=== PATIENT | female | born 1960 | race Caucasian/White ===

== ENCOUNTER 2023-08-30 17:16 | Inpatient (IN) | payer MEDICARE, OTHER, SELFPAY ==
[2023-08-30 17:38] LABS: Actual Bicarbonate (HCO3a) 15.6 mEq/L (22-28); Analyzer IN Cardio ER; Base Excess (BEa) -14.4 mEq/L (-2.0 to +3.0); CO2 Tension 53.3 mmHg (35.0-45.0); Calcium, Ionized (arterial) 1.25 mmol/L (1.12-1.30); Carboxyhemoglobin (COHb) 1.4 gm% (0.0-3.0); Hematocrit-ABG 38 % (36.0-47.0); Potassium - ABG Lab 3.96 mmol/L (3.70-5.30); Puncture Site RRA; pH, Arterial 7.083 (7.35-7.45)
[2023-08-30 17:39] LABS: ALV-art Gradient -105.625 mmHg (0-20)
[2023-08-30] MEDS ORDERED: Amiodarone 450 MG/9 ML VIAL ONE (17:45)
[2023-08-30] MEDS ORDERED: Amiodarone 150 MG/3 ML VIAL ONE (17:45)
[2023-08-30 17:53] LABS: Hematocrit 38.7 % (36.0-47.0); Hemoglobin 12.7 g/dL (12.0-16.0); Mean Corpuscular HGB CONC 32.8 g/dL (32.0-36.0); Mean Corpuscular Hemoglobin 35.5 pg (27.0-31.0); Mean Corpuscular Volume 108.1 fL (78.0-98.0); Mean Platelet Volume 12.7 fL (7.4-10.4); Platelet Count 123 10x3/uL (130-400); RBC Distribution Width 15.6 % (11.5-14.5); Red Blood Cell (RBC) Count 3.58 mill/uL (4.20-5.40)
[2023-08-30 18:09] LABS: ALT (SGPT) 301 U/L (8-55); AST (SGOT) 432 U/L (5-34); Albumin 3.1 g/dL (3.4-4.8); Alkaline Phosphatase 148 U/L (40-110); Anion Gap 23 mmol/L (10-20); BUN (Urea Nitrogen) 18 mg/dL (9.8-20.1); Bilirubin, Total 0.9 mg/dL (0.2-1.2); CK (CPK) 366 U/L (29-168); Calc. Creatinine Clearance 0 mL/min (70-130); Calcium 8.8 mg/dL (7.8-10.44); Carbon Dioxide 10 mmol/L (23-31); Chloride 108 mmol/L (98-107); Estimated GFR 42; Globulin 2.8 g/dL (2.4-3.5); Glucose 229 mg/dL (80-115); Potassium 4.6 mmol/L (3.5-5.1); Protein, Total 5.9 g/dL (5.8-8.1); Sodium 136 mmol/L (136-145)
[2023-08-30 18:26] LABS: Anisocytosis SLIGHT = 6-15 cells HPF (0-5); Band 14 % (5-11); Burr Cells MODERATE= 6-15 cells HPF (0-1); Eosinophils 2 % (0-10); Large Platelets 7.9 % (0-5); Lymphocytes 36 % (21-51); Macrocytosis SLIGHT = 6-15 cells HPF (0-5); Metamyelocyte 2 % (0-0); Monocytes 2 % (0-10); Myelocyte 1 % (0-0); Neutrophil 44 % (42-75); Ovalocytes SLIGHT = 2-5 cells HPF (0-1); Platelet Adequacy Comment Platelets Decreased; Poikilocytosis MODERATE=16-30 cells HPF (0-5); Polychromasia SLIGHT = 2-3 cells HPF (0-2)
[2023-08-30 18:30] LABS: Troponin I 3.684 ng/mL (< 0.028)
[2023-08-30] MEDS ORDERED: EPINEPHrine 1 MG/ML VIAL ONE (19:54)
[2023-08-30] MEDS ORDERED: Ventilator Sedation Protocol 1 EACH FS SCH (21:10)
[2023-08-30] MEDS ORDERED: DISCONTINUE PREVIOUS NARCOTIC PAIN MEDICATIONS AND BENZODIAZEPINES FS SCH (21:15)
[2023-08-30] MEDS ORDERED: Propofol BOLUS 1,000 MG/100 ML VIAL IV PRN (21:15)
[2023-08-30] MEDS ORDERED: Fentanyl BOLUS 250 ML IVPB PRN (21:15)
[2023-08-30] MEDS ORDERED: Fentanyl CADD 100 ML IV SCH (21:15)
[2023-08-30] MEDS ORDERED: Propofol 1,000 MG/100 ML VIAL IV PRN (21:15)
[2023-08-30 21:16] LABS: Base Excess (BEa) -16.3 mEq/L (-2.0 to +3.0); CO2 Tension 42.8 mmHg (35.0-45.0); Calcium, Ionized (arterial) 1.17 mmol/L (1.12-1.30); Carboxyhemoglobin (COHb) 0.6 gm% (0.0-3.0); Hematocrit-ABG 35 % (36.0-47.0); Hemoglobin (Hb) 11.8 g/dL (12.0-16.0); O2 Tension (PaO2), arterial 222.1 mmHg (> 80.0); Potassium - ABG Lab 4.17 mmol/L (3.70-5.30)
[2023-08-30 21:19] LABS: Actual Bicarbonate (HCO3a) 12.8 mEq/L (22-28); pH, Arterial 7.094 (7.35-7.45)
[2023-08-30 21:20] LABS: Puncture Site RRA
[2023-08-30] MEDS: Sodium Bicarb 50 MEQ/50 ML Abboject 8.4% SYRINGE ONE ×2 (21:20)
[2023-08-30 22:07] LABS: Lactic Acid 10.9 mmol/L (0.5-2.2)
[2023-08-30] MEDS ORDERED: Electrolyte Replacement Protocol 1 EACH FS SCH (22:10)
[2023-08-30] MEDS ORDERED: Dextrose 5% in Water 1,000 ML IV PRN (22:11)
[2023-08-30] MEDS ORDERED: Glucagon 1 MG/ML KIT IM PRN (22:11)
[2023-08-30] MEDS ORDERED: Dextrose 50% Abboject 50 ML SYRINGE SLOW IVP PRN (22:11)
[2023-08-30] MEDS ORDERED: Acetaminophen 650 MG Suppository PR PRN (22:36)
[2023-08-30] MEDS ORDERED: Acetaminophen 325 MG (10.15 ML) UDCUP PO PRN (22:36)
[2023-08-30] MEDS: NOREPINEPHRINE 8 MG/250 ML-D5W 250 ML ONE (22:37)
[2023-08-30] MEDS: Sodium Bicarbonate 150 MEQ in Sterile Water 1,000 ML IV SCH (22:39)
[2023-08-30] MEDS: Lactated Ringer's 1,000 ML IV SCH (22:41)
[2023-08-30] MEDS: EPINEPHrine 4 MG in Dextrose 5% in Water 250 ML IV SCH (22:43)
[2023-08-30] MEDS: Amiodarone 450 MG in Dextrose 5% in Water 250 ML IVPB SCH (22:47)
[2023-08-30 22:51] LABS: INR-International Normal Ratio 2.5; Prothrombin Time 27.1 sec (12.0-14.7)
[2023-08-30 22:52] LABS: PTT 62.9 sec (22.9-36.1)
[2023-08-30 22:53] LABS: Magnesium 1.3 mg/dL (1.6-2.6)
[2023-08-30 22:56] LABS: Fibrinogen 103 mg/dL (253-463)
[2023-08-30 22:59] LABS: Troponin I 24.678 ng/mL (< 0.028)
[2023-08-30] MEDS: Sodium Bicarb 50 mEq/50 ML VIAL IVP SCH (22:59)
[2023-08-30 23:07] VITALS: BMI 24.3
[2023-08-30 23:07] LABS: D-Dimer Test Greater than 20.00 mcg/mL (0.27-0.43)
[2023-08-30] MEDS ORDERED: Magnesium Sulfate 4 GM in Sodium Chloride 0.9% 250 ML 250 ML IVPB SCH (23:30)
[2023-08-30] MEDS: Magnesium Sulfate In Water 4 GM in Premix 1 BAG IVPB SCH (23:36)
[2023-08-30 23:53] LABS: Platelet Count 71 10x3/uL (130-400)
[2023-08-30 23:58] LABS: Base Excess -13.6 mEq/L (-2.0 to +3.0); Calcium, Ionized (venous) 1.05 mmol/L (1.16-1.32); Chloride (VBG) 100 mmol/L (98-106); Hematocrit-VBG 34 % (36.0-47.0); Hemoglobin (Hb) 11.6 g/dL (11.7-16.1); Potassium (VBG) 3.41 mmol/L (3.70-5.30); Sodium 138 mmol/L (133-146)
[2023-08-31] MEDS: NOREPINEPHRINE 8 MG/250 ML-D5W 250 ML IVPB SCH (01:47)
[2023-08-31 02:31] LABS: Amphetamine Not Detected (NotDetected); Barbiturates Screen Not Detected (NotDetected); Benzodiazepine Screen Not Detected (NotDetected); Cocaine Metabolite Screen Not Detected (NotDetected); Methadone Not Detected (NotDetected); Methamphetamine Not Detected (NotDetected); Opiate Screen Not Detected (NotDetected); Oxycodone Screen Not Detected (NotDetected); Phencyclidine (PCP) Not Detected (NotDetected); THC/Cannabinoid Screen Not Detected (NotDetected); Tricyclic Screen Detected (NotDetected)
[2023-08-31 02:56] LABS: Troponin I 24.545 ng/mL (< 0.028)
[2023-08-31] MEDS ORDERED: Insulin Lispro 100 UNIT/ML 10 ML VIAL SC PRN ×2 (06:28)
[2023-08-31 06:43] LABS: Hematocrit 25.8 % (36.0-47.0); Mean Corpuscular HGB CONC 34.9 g/dL (32.0-36.0); Mean Corpuscular Hemoglobin 35.3 pg (27.0-31.0); Mean Corpuscular Volume 101.2 fL (78.0-98.0); Mean Platelet Volume 13.6 fL (7.4-10.4); Platelet Count 43 10x3/uL (130-400); RBC Distribution Width 15.5 % (11.5-14.5); Red Blood Cell (RBC) Count 2.55 mill/uL (4.20-5.40)
[2023-08-31 06:54] LABS: Magnesium 2.4 mg/dL (1.6-2.6)
[2023-08-31 06:55] LABS: Acetaminophen Less than 10 mcg/mL (10.0-30.0); Alcohol Less than 10.0 mg/dL (Less than 10); Salicylate Less than 8.0 mg/dL (15.0-30.0)
[2023-08-31 07:00] LABS: Lactic Acid 10.1 mmol/L (0.5-2.2)
[2023-08-31 07:03] LABS: Base Excess (BEa) -6.8 mEq/L (-2.0 to +3.0); CO2 Tension 33.8 mmHg (35.0-45.0); Calcium, Ionized (arterial) 0.97 mmol/L (1.12-1.30); Carboxyhemoglobin (COHb) 1.1 gm% (0.0-3.0); Hematocrit-ABG 34 % (36.0-47.0); Hemoglobin (Hb) 11.6 g/dL (12.0-16.0); O2 Tension (PaO2), arterial 87.2 mmHg (> 80.0); Potassium - ABG Lab 2.82 mmol/L (3.70-5.30); pH, Arterial 7.345 (7.35-7.45)
[2023-08-31 07:03] LABS: Band 30 % (5-11); Lymphocytes 3 % (21-51); Myelocyte 1 % (0-0); Neutrophil 66 % (42-75); Platelet Adequacy Comment Platelets Decreased; Polychromasia SLIGHT = 2-3 cells HPF (0-2)
[2023-08-31 07:05] LABS: Puncture Site Arterial Line
[2023-08-31 07:27] LABS: ALT (SGPT) 284 U/L (8-55); AST (SGOT) 574 U/L (5-34); Albumin 2.9 g/dL (3.4-4.8); Alkaline Phosphatase 93 U/L (40-110); Anion Gap 26 mmol/L (10-20); BUN (Urea Nitrogen) 30 mg/dL (9.8-20.1); Calc. Creatinine Clearance 36 mL/min (70-130); Calcium 7.6 mg/dL (7.8-10.44); Carbon Dioxide 15 mmol/L (23-31); Chloride 97 mmol/L (98-107); Estimated GFR 30; Globulin 1.6 g/dL (2.4-3.5); Glucose 303 mg/dL (80-115); Potassium 2.7 mmol/L (3.5-5.1); Protein, Total 4.5 g/dL (5.8-8.1); Sodium 135 mmol/L (136-145)
[2023-08-31 08:34] LABS: Platelet Count 34 10x3/uL (130-400)
[2023-08-31 08:46] LABS: Fibrinogen 292 mg/dL (253-463)
[2023-08-31 08:47] LABS: INR-International Normal Ratio 1.6; PTT 34.1 sec (22.9-36.1)
[2023-08-31 09:06] LABS: D-Dimer Test Greater than 20.00 mcg/mL (0.27-0.43)
[2023-08-31] MEDS: Potassium Chloride 20 MEQ in Premix 1 BAG IVPB SCH (09:49)
[2023-08-31] MEDS: Pantoprazole 40 MG VIAL IVP SCH (09:49)
[2023-08-31] MEDS: Lactated Ringer's 1,000 ML IV SCH (10:59)
[2023-08-31 12:13] VITALS: BMI 25.2
[2023-08-31 14:53] VITALS: BP 116/43
[2023-08-31] MEDS: Morphine 2 MG/ML VIAL SLOW IVP PRN (15:02)
[2023-08-31] MEDS: Lorazepam 2 MG/ML VIAL SLOW IVP PRN (16:11)
[2023-08-31] MEDS: Scopolamine 1 mg/72 hour Patch TOP SCH (16:16)
[2023-08-31 22:20] VITALS: TEMP 100.7
[2023-09-01 10:39] LABS: Actual Bicarbonate (HCO3v) 14.2 mEq/L (22-28)
== END 2023-09-01 01:44 | disposition expired ==
LOC: ERS 17:16 → CCU 19:32
PROVIDERS: ADMIT Student in an Organized Health Care Education/Training Program; ATTEND Internal Medicine
PROC: 03HY32Z Insertion of Monitoring Device into Upper Artery, Percutaneous Approach (ICD-10-PCS; principal; 2023-08-30)
PROC: 4A133B1 Monitoring of Arterial Pressure, Peripheral, Percutaneous Approach (ICD-10-PCS; 2023-08-30)
PROC: 4A133J1 Monitoring of Arterial Pulse, Peripheral, Percutaneous Approach (ICD-10-PCS; 2023-08-30)
PROC: 4A133R1 Monitoring of Arterial Saturation, Peripheral, Percutaneous Approach (ICD-10-PCS; 2023-08-30)
PROC: 3E033XZ Introduction of Vasopressor into Peripheral Vein, Percutaneous Approach (ICD-10-PCS; 2023-08-30)
PROC: 0BH17EZ Insertion of Endotracheal Airway into Trachea, Via Natural or Artificial Opening (ICD-10-PCS; 2023-08-30)
PROC: 5A1935Z Respiratory Ventilation, Less than 24 Consecutive Hours (ICD-10-PCS; 2023-08-30)
PROC: 30233K1 Transfusion of Nonautologous Frozen Plasma into Peripheral Vein, Percutaneous Approach (ICD-10-PCS; 2023-08-31)
PROC: 30233M1 Transfusion of Nonautologous Plasma Cryoprecipitate into Peripheral Vein, Percutaneous Approach (ICD-10-PCS; 2023-08-31)
DX: I46.9 Cardiac arrest, cause unspecified (principal); J96.00 Acute respiratory failure, unspecified whether with hypoxia or hypercapnia; I21.4 Non-ST elevation (NSTEMI) myocardial infarction; K72.00 Acute and subacute hepatic failure without coma; C85.10 Unspecified B-cell lymphoma, unspecified site; M96.A1 Fracture of sternum associated with chest compression and cardiopulmonary resuscitation; M96.A3 Multiple fractures of ribs associated with chest compression and cardiopulmonary resuscitation; G93.1 Anoxic brain damage, not elsewhere classified; N17.9 Acute kidney failure, unspecified; D68.9 Coagulation defect, unspecified; T82.120A Displacement of cardiac electrode, initial encounter; E87.4 Mixed disorder of acid-base balance; I50.22 Chronic systolic (congestive) heart failure; I21.9 Acute myocardial infarction, unspecified; J44.9 Chronic obstructive pulmonary disease, unspecified; I73.9 Peripheral vascular disease, unspecified; Z66 Do not resuscitate; R57.0 Cardiogenic shock; E83.42 Hypomagnesemia; Z90.49 Acquired absence of other specified parts of digestive tract; Z90.710 Acquired absence of both cervix and uterus; Z98.890 Other specified postprocedural states; Z95.1 Presence of aortocoronary bypass graft; Z95.810 Presence of automatic (implantable) cardiac defibrillator; Z82.49 Family history of ischemic heart disease and other diseases of the circulatory system; F17.210 Nicotine dependence, cigarettes, uncomplicated; Y83.8 Other surgical procedures as the cause of abnormal reaction of the patient, or of later complication, without mention of misadventure at the time of the procedure; Z79.899 Other long term (current) drug therapy
CPT/HCPCS: 36415; 36416; 36430; 36556; 36600; 71045; 71275; 74018; 76705; 80053; 80306; 80307; 82140; 82550; 82805; 83605; 83735; 84443; 84484; 85025; 85049; 85300; 85362; 85384; 85610; 85730; 86850; 86900; 86901; 93005; 94002; 94003; 96374; 96375; 96376; A4217; C9113; J0171; J0282; J2060; J2272; J3475; J3480; J7070; J7120; P9012; P9059